=== PATIENT | female | born 1945 | race Caucasian/White ===

== ENCOUNTER → 2021-02-16 | Outpatient (CLI) | payer OTHER ==
[~2021-02-16] MED LIST: ADVAIR 100-501 EACH IA; ADVAIR 100-501 EACH IH; ALBUTEROL INH IH; AMITRIPTYLINE H10 M1; ASPIRIN EC81 M1 PO; BENZONATATE200 MG PO; BONIVA150 MG OR; CALCIUM PO; FISHOIL PO; HYDROCODON-ACE1 EACH PO; IMURAN 50MG TAB50 M1 PO; LOSARTAN POTASS50 MG PO; MULTIVITAMINS PO; NIASPAN 500 MG500 M1; NORVASC 5 MG TAB5 MG PO; VITAMIN D21250 MCG PO; ZETIA10 MG PO
== END ==
LOC: LAB 05:42
PROVIDERS: ATTEND Student in an Organized Health Care Education/Training Program
DX: Z01.812 Encounter for preprocedural laboratory examination (principal); Z20.822 Contact with and (suspected) exposure to COVID-19

== ENCOUNTER → 2021-02-22 | Outpatient (CLI) | payer OTHER ==
[~2021-02-22] VITALS: Ht 160 cm; Wt 68.0 kg
== END | disposition home or self-care (01) ==
LOC: GI 08:23
PROVIDERS: ATTEND Internal Medicine Gastroenterology
DX: Z12.11 Encounter for screening for malignant neoplasm of colon (principal); K57.30 Diverticulosis of large intestine without perforation or abscess without bleeding; I10 Essential (primary) hypertension; J45.909 Unspecified asthma, uncomplicated; E78.00 Pure hypercholesterolemia, unspecified; Z98.890 Other specified postprocedural states; Z79.899 Other long term (current) drug therapy; Z85.828 Personal history of other malignant neoplasm of skin; Z88.8 Allergy status to other drugs, medicaments and biological substances
CPT/HCPCS: 62110; 62900